=== PATIENT | female | born 1960 | race Caucasian/White ===

== ENCOUNTER → 2017-11-05 17:48 | Outpatient (CLI) | payer BC | END | disposition home or self-care (01) | LOC: D.MAMMO 10:45 | DX: Z12.31 Encounter for screening mammogram for malignant neoplasm of breast (principal) ==

== ENCOUNTER → 2017-12-11 10:00 | Outpatient (CLI) | payer BC | END | disposition home or self-care (01) | LOC: D.MAMMO 10:00 | DX: R92.8 Other abnormal and inconclusive findings on diagnostic imaging of breast (principal) ==

== ENCOUNTER → 2018-10-20 17:02 | Outpatient (CLI) | payer BC | END | disposition home or self-care (01) | LOC: D.MAMMO 08:00 | DX: Z12.31 Encounter for screening mammogram for malignant neoplasm of breast (principal) ==

== ENCOUNTER → 2020-04-06 21:00 | Outpatient (CLI) | payer BC | END | disposition home or self-care (01) | LOC: D.MAMMO 04-03 15:15 | PROVIDERS: ATTEND Family Medicine | DX: Z12.31 Encounter for screening mammogram for malignant neoplasm of breast (principal) ==